=== PATIENT | male | born 1975 | race Two or more races ===

== ENCOUNTER 2016-10-30 08:09 | Emergency (ER) | payer SELFPAY ==
[~2016-10-30 08:09] MED LIST: FLEXERIL10 MG PO; HYDROCHLOROTHIA25 MG PO; NAPROXEN PO; NO MEDICATIONS
== END 2016-10-30 08:41 | disposition home or self-care (01) ==
LOC: SED 08:09
DX: M79.671 Pain in right foot (principal); G89.29 Other chronic pain; I10 Essential (primary) hypertension
CPT/HCPCS: 99283

== ENCOUNTER 2016-11-20 09:42 | Emergency (ER) | payer SELFPAY ==
[~2016-11-20] VITALS: Ht 172.7 cm; Wt 83.9 kg
== END 2016-11-20 10:16 | disposition home or self-care (01) ==
LOC: SED 09:42
DX: T63.461A Toxic effect of venom of wasps, accidental (unintentional), initial encounter (principal); I10 Essential (primary) hypertension
CPT/HCPCS: 99282